=== PATIENT | male | born 1960 | race Caucasian/White ===

== ENCOUNTER → 2017-11-16 10:16 | Outpatient (CLI) | payer OTHER, SELFPAY ==
--- NOTE | 2017-11-16 10:20 | MR_ITS ---
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 Tinnitus. Hearing loss. Left ear. Pressure in tear. TECHNIQUE: MRI brain with without contrast : Precontrast Multiplanar FLAIR, T1, T2 weighted images along with axial diffusion/ADC imaging performed on 1.5 T. Siemens, MRI. Postcontrast imaging [id number] ProHance T1-weighted images axial & coronal plane performed. Additional thin sections sequences including T2-weighted 3-D slab acquisition through the IACs included as well. COMPARISON :No prior study for comparison FINDINGS Infratentorial The posterior fossa appears normal. The temporal bone appears normal. Mastoid air cells well-developed and clear Additional thin sections performed through the IACs demonstrate them to be symmetric with normal contour and size... The cranial nerve VII and VIII appear identified & satisfactory. No intracanalicular abnormalities nor enhancement. . Supratentorial: On close inspection there is a subtle small area of enhancement & minimal signal abnormality.. This small stippled area of enhancement I suspect is a tiny area of mulberry-like tangled vessels seen located at the superior right sylvian fissure. Appearance is suspect for a small cerebral hemangioma/tiny cerebral cavernous malformation feature measure up to 1 cm maximally... No mass effect. No edema associated .. Although initially seen as a a low signal focus on diffusion image 1415, on postcontrast images (postcontrast image 14, & coronal 13, this small area showed slight stippled enhancement. I would suggest follow-up scan in 6 months postcontrast to confirm stability. Patient may benefit from follow-up imaging at tertiary neuroimaging facility to optimize care, & follow-up.. Also been having this scan prior to imaging would be helpful.. Including T2*star sequence in follow-up may also be useful (this sequence are more sensitive to hemosiderin seen with prior microhemorrhage). The low signal on diffusion either reflecting flow void although could reflect tiny subtle microhemorrhage in past. --- The remainder the brain appears satisfactory. There are no deep white matter of significance otherwise seen on the sensitive FLAIR imaging in the axial and coronal projection.. No territorial infarct. No extra-axial nor subdural collection or features. [employer] & skull appears satisfactory. The cranial cervical junction appears normal. The paranasal sinuses appear clear. Ethmoid air cells sphenoid unremarkable orbits unremarkable. IMPRESSION: 1. There is a subtle 1 cm of slightly stippled relative enhancement at the right sylvian fissure. Appearance suspect for a vascular tangle as might be seen with small developing cavernous hemangioma//possible tiny cavernous malformation type feature....,. Minimal incidental observation noted, but would benefit from follow-up.. ( Low signal here on diffusion weighted imaging may reflect flow-void but could not exclude minimal prior microhemorrhage). 2. Suggest Follow-up MR with contrast ( including T2* STAR image set) in 6 months, as discussed in text 3.. Thin sections to the IACs, cranial nerves and posterior fossa appear normal 4. & Remainder the brain appears normal
== END ==
PROVIDERS: Visit Provider Otolaryngology
DX: H74.02 Tympanosclerosis, left ear (principal); H69.82 Other specified disorders of Eustachian tube, left ear; H93.12 Tinnitus, left ear; H90.5 Unspecified sensorineural hearing loss
CPT/HCPCS: 70553; A9576

== ENCOUNTER → 2021-04-11 16:05 | Outpatient (CLI) | payer OTHER, SELFPAY ==
[2021-04-11 17:23] LABS: Basophils # 0.1 K/mm3 (0-0.2); Basophils % 0.7 % (0.1-2.0); Eosinophils # 0.2 K/mm3 (0.0-0.4); Eosinophils % 2.7 % (0.1-12.0); Hematocrit 44.2 % (42.0-52.0); Hemoglobin 14.9 g/dL (14.1-18.0); Lymphocytes # 2.1 K/mm3 (0.7-4.5); Lymphocytes % 32.4 % (10-50); Mean Corpuscular HGB Conc 33.7 g/dL (31.8-35.4); Mean Corpuscular Hemoglobin 28.7 pg (27.0-31.2); Mean Corpuscular Volume 85.2 fl (80-94); Mean Platelet Volume 7.4 fl (7.4-10.4); Monocytes # 0.3 K/mm3 (0.1-1.0); Monocytes % 5.2 % (1.7-9.3); Neutrophils # 3.9 K/mm3 (1.8-7.8); Neutrophils % 59.1 % (37.0-80.0); Platelet Count 258 K/mm3 (142-424); Red Blood Count 5.19 M/mm3 (4.60-6.20); White Blood Count 6.6 K/mm3 (4.8-10.8)
[2021-04-11 17:40] LABS: Alanine Aminotransferase 34 U/L (12-78); Albumin Level 4.5 g/dl (3.5-5.0); Albumin/Globulin Ratio 1.7 (1.1-1.8); Alkaline Phosphatase 74 U/L (38-126); Aspartate Amino Transferase 37 U/L (17-59); Bilirubin,Total 0.6 mg/dl (0.2-1.3); Blood Urea Nitrogen 20 mg/dl (9-20); Calcium 9.6 mg/dl (8.4-10.2); Carbon Dioxide 26 mmol/L (22.0-30.0); Chloride 102 mmol/L (98-107); Chol/HDL Ratio 3.9 (1-3.5); Cholesterol 189 mg/dl (140-200); Estimated Glomerular Filt Rate 86 ml/min (>60); GFR (African American) 104 ML/MIN (>60); Globulin 2.6 g/dL (1.3-3.2); Glucose 90 mg/dl (74-100); HDL Cholesterol 48 mg/dl (40-60); Sodium 136 mmol/L (136-145); Total Protein,Serum 7.1 g/dl (6.3-8.2); Triglycerides 119 mg/dl (30-150); VLDL Cholesterol 24 mg/dL (0-40)
[2021-04-11 17:51] LABS: Direct LDL Cholesterol 107.29 mg/dL (100-129)
[2021-04-11 18:11] LABS: Prostate Specific Ag, Diagnost 3.71 ng/ml (0.0-4.0)
== END ==
PROVIDERS: Visit Provider Internal Medicine Adolescent Medicine
DX: E78.5 Hyperlipidemia, unspecified (principal); R97.20 Elevated prostate specific antigen [PSA]
CPT/HCPCS: 36415; 80053; 80061; 84153; 85025

== ENCOUNTER 2024-12-09 10:50 | Outpatient (CLI) | payer BC, SELFPAY ==
[2024-12-09 20:25] LABS: Influenza A, PCR Not Detected (NotDetected); Influenza B, PCR Not Detected (NotDetected)
[2024-12-09 22:16] LABS: Coronavirus 19, PCR Detected (NotDetected)
== END 2024-12-09 23:59 | disposition home or self-care (01) ==
LOC: LAB.DROPOF 12-11 11:49
PROVIDERS: PCP Nurse Practitioner Family; Visit Provider Nurse Practitioner Family
DX: J06.9 Acute upper respiratory infection, unspecified (principal)
CPT/HCPCS: 87631